=== PATIENT | female | born 1965 | race Caucasian/White ===

== ENCOUNTER 2016-10-28 07:08 | Day surgery (SDC) | payer OTHER ==
[~2016-10-28] VITALS: Ht 170.2 cm; Wt 59.5 kg
[~2016-10-28 07:08] MED LIST: LACTATED RINGERS 1,000 ML IV SCH; SODIUM CHLORIDE FLUSH 3 ML SYR IV PRN
[2016-10-28 07:19] VITALS: BP 119/71
[2016-10-28] MEDS ORDERED: ALFENTANIL 500 MCG/ML (ALFENTA) 5 ML AMP IV ONE ×2 (07:32→07:33)
[2016-10-28] MEDS ORDERED: PROPOFOL 20 ML IV ONE (07:32)
[2016-10-28] MEDS ORDERED: MIDAZOLAM 2 MG/2 ML (VERSED) VIAL ONE (07:33)
[2016-10-28 08:49] VITALS: BP 111/66
[2016-10-28 09:02] VITALS: BP 104/54
== END 2016-10-28 09:07 | disposition home or self-care (01) ==
LOC: ASC 07:08
PROVIDERS: ATTEND Surgery
PROC: 0DJD8ZZ Inspection of Lower Intestinal Tract, Via Natural or Artificial Opening Endoscopic (ICD-10-PCS; principal; 2016-10-28)
DX: K57.30 Diverticulosis of large intestine without perforation or abscess without bleeding (principal); Z86.010 Personal history of colon polyps
CPT/HCPCS: 45378; J2250; J7120